=== PATIENT | female | born 1980 | race Caucasian/White ===

== ENCOUNTER 2016-10-18 10:38 | Emergency (ER) | payer OTHER ==
[~2016-10-18] VITALS: Ht 177.8 cm; Wt 79.5 kg
[2016-10-18 10:40] VITALS: BP 141/88; PULSE 77; RESP 16; O2SAT 100
--- NOTE | 2016-10-18 11:10 | ED.REPORT ---
HPI-Facial Injury Date of Service Oct 18, 2016 ED Provider: King Castro MD Patient is a 36 year old female who presents to the ED complaining of a headache behind the left eye onset 4 days ago. Associated symptoms include pain that radiates into her jaw and left shoulder, lip numbness, left arm and leg weakness, left leg swelling since resolved, lightheadedness when she bends over and blurry vision when she bends over. The patient also complains of constant abdominal pain onset 6 months ago. She denies vision loss, difficulty walking, difficulty swallowing, difficulty speaking, chest pain, shortness of breath, diarrhea, constipation, hematochezia, dysuria, fever or back pain. The patient reports that her left eye started hurting when she moved her eyes and then went away for a day but then returned the next morning. She states that she has never experienced this type of headache before. Patient has an appointment scheduled with her primary care physician regarding her abdominal pain. Nursing Notes Stated Complaint: LEFT SIDE FACIAL PAIN/NUMBNESS Chief Complaint: General Complaint Nursing Notes Reviewed: Yes Allergies: Coded Allergies: No Known Allergies (Verified , 10/18/16) General Time Seen by Provider: 11:24 Chief Complaint Other (eye pain) Hx Obtained From: Patient Arrived By: Walk-in Onset Occurred: 4 days ago Quality: Painful Severity: Current: Moderate Similar Sx Previous: No Past Medical History Past Medical History none reported Past Surgical History Reports: Cholecystectomy Smoking History Unknown if Ever Smoker Social History Other Social History: Good social support Ambulatory Status Independent Review of Systems Constitutional: Denies: Chills, Fever Eyes: Reports: Blurred bilateral, Eye pain left, Denies: Visual loss bilateral Musculoskeletal: Reports: Extremity pain, Extremity swelling, Denies: Back pain Skin: Denies Itching, Denies Rash Neurologic: Reports: Headache, Numbness, Weakness, Denies: Slurred speech, Unable to speak Complete sys rev & neg: except as marked. Respiratory: Denies: Non-productive cough, Shortness of breath Cardiovascular: Denies: Chest pain GI: Reports: Abdominal pain, Denies: Constipation, Diarrhea, Hematochezia Female: Denies: Dysuria Physical Exam Initial Vital Signs Vital Signs (First) Date Time Temp Pulse Resp B/P Pulse Ox O2 Delivery O2 Flow Rate FiO2 10/18/16 10:40 36.8 77 16 141/88 100 Room Air Initial VS: Reviewed Head / Eyes: Atraumatic, Normocephalic, PERRL, EOMI ENT: Atraumatic, Airway patent, Mucous membranes moist, Tympanic membs NL Neck: Atraumatic, Supple Neurologic: Oriented X3, Speech NL, CN II - XII intact normal heel to caldwell normal nose to finger General/Constitutional: Awake, Alert, No acute distress Respiratory / Chest: Atraumatic, Breath sounds NL, Breath sounds = bilat, No respiratory distress Cardiovascular: Heart rate NL, Regular rhythm, Heart sounds NL, No murmurs Skin: Atraumatic, Color NL, No rash, Warm, Dry Abdomen: Atraumatic, Soft Tenderness/Guarding/Rebound: Positive: Tender diffuse Lower Extremity / Pelvis / MS: Atraumatic, No edema Psychiatric: Affect NL, Mood NL Interpretation & Diagnostics Interpretation & Diagnostics: BRAIN MRI: IMPRESSION: Unremarkable unenhanced examination as above. No evidence of acute ischemia or white matter signal abnormality. Dictated by: Sav Roberts M.D. on 10/18/2016 at 12:44 Approved by: Sav Roberts M.D. on 10/18/2016 at 12:50 Lab Results Interpretation Result Diagram: 10/18/16 1128 10/18/16 1128 Test 10/18/16 11:28 10/18/16 15:52 White Blood Count 6.5th/mm3 (3.8-10.1) Red Blood Count 4.70mil/mm3 (3.90-5.20) Hemoglobin 13.7g/dL (12.0-15.6) Hematocrit 40.0% (35.0-46.0) Mean Corpuscular Volume 85.1fL (81-100) Mean Corpuscular Hemoglobin 29.1pg (27.0-35.0) Mean Corpuscular Hemoglobin Concent 34.3% (32.0-37.0) Red Cell Distribution Width 12.4% (12.3-15.4) Platelet Count 248bil/L (150-400) Neutrophils (%) (Auto) 66.0% (40-74) Lymphocytes (%) (Auto) 24.9% (14-46) Monocytes (%) (Auto) 8.0% (4-12) Eosinophils (%) (Auto) 0.6% (0-5) Basophils (%) (Auto) 0.3% (0-3) Sodium Level 137mEq/L (134-144) Potassium Level 3.9mEq/L (3.5-5.2) Chloride Level 100mEq/L (97-108) Carbon Dioxide Level 22mmol/L (18-29) Blood Urea Nitrogen 10mg/dL (6-20) Creatinine 0.63mg/dL (0.57-1.00) Estimat Glomerular Filtration Rate 153mL/min (>59) Glucose Level 97mg/dL (60-99) Calcium Level 9.3mg/dL (8.5-10.1) Total Bilirubin 0.3mg/dL (0.0-1.2) Aspartate Amino Transf (AST/SGOT) 23U/L (0-50) Alanine Aminotransferase (ALT/SGPT) 30U/L (0-32) Alkaline Phosphatase 76U/L (25-150) Total Protein 7.2g/dL (6.4-8.4) Albumin 4.2g/dL (3.4-5.0) Lipase 21U/L (13-60) Hold Urine Received (Received) CT Head Interpretation IMPRESSION: No acute intracranial findings. Dictated by: Callie Ham M.D. on 10/18/2016 at 12:12 Approved by: Callie Ham M.D. on 10/18/2016 at 12:14 Interpretation / Wet Read by: Interpret - Radiologist Re-Eval/Medical Decision Med Decision/Clinical Course Med Decision/Clinical Course: 36-year-old female presenting with left facial numbness and unilateral left-sided headache [address] scan and MRI were performed both of which showed no acute pathology. Labs are unremarkable. She did complain of some chronic abdominal pain labs were normal. Her abdomen was mildly tender which resolved while she was here with GI cocktail. Did not suspect CVA given normal imaging as above. Possible atypical migraine. She will follow-up with her primary doctor. Return precautions given. Re-Evaluation/Progress : Time of Eval: 14:07 Re-Evaluation/Progress Note: Discussed results and plan for discharge. Patient understands and agrees to plan. All questions were addressed Counseled Regarding: Diagnosis, Lab results, Need for follow-up, When/why to return to ED Discharge & Departure Impression: Primary Impression: Facial numbness Additional Impressions: Headache Headache type: unspecified Headache chronicity pattern: acute headache Intractability: intractable Qualified Code: R51 - Headache Abdominal pain Abdominal location: generalized Qualified Code: R10.84 - Generalized abdominal pain Disposition: Home Discharge Condition All VS Reviewed: Yes Condition: Stable Additional Instructions: Your head CT and MRI was normal and reassuring. An immediately dangerous cause for symptoms were not identified today. You can try taking Tylenol for your pain. Follow up with the referred neurologist and your primary care physician next week. Return to the emergency department if you develop any new or concerning symptoms Referrals: Clara Zapata MD (PCP) Ashley Attestation Portions of this note were transcribed by Patrizia Charles. I, Dr. Castro personally performed the history, physical exam and medical decision-making; I reviewed and confirmed the accuracy of the information in the transcribed note. Signed by: Ashley Jaimes, 10/18/16. copies to: Clara Zapata MD, Ben M MD Oct 18, 2016 11:10 Sherrie Charles Oct 18, 2016 11:32
[2016-10-18] MEDS ORDERED: 0.9% Sodium Chloride 1,000 ML IV ONE (11:34)
[2016-10-18] MEDS ORDERED: LidocaineVisc 2%:Antacid 1:1 10 mL Syringe PO ONE (11:35)
[2016-10-18] MEDS ORDERED: MetoCLOpramide 5 mg/mL 2 mL Inj IVPUSH ONE (11:35)
--- NOTE | 2016-10-18 12:16 | DRSVH ---
PROCEDURE: CT BRAIN WITHOUT CONTRAST ([id number]) INDICATIONS: facial numbness TECHNIQUE: Noncontrast 4.5 mm thick angled axial sections acquired from the foramen magnum to the vertex, with c oronal reformats. COMPARISON: None. FINDINGS: Image quality: Excellent. CSF spaces: Basal cisterns are patent. No extra-axial fluid collections. Ventricles are normal in size and shape. Brain: No midline shift. No intracranial masses or hemorrhage. Stacy-white matter interface is norm al. Skull and face: Calvarium and visualized facial bones are intact, without suspicious lesions. Sinuses: Visualized sinuses and mastoids are clear. IMPRESSION: No acute intracranial findings. Dictated by: Callie Ham M.D. on 10/18/2016 at 12:12 Approved by: Callie Ham M.D. on 10/18/2016 at 12:14
[2016-10-18 12:48] LABS: BASOPHILS % (AUTO) 0.3 % (0-3); EOSINOPHILS % (AUTO) 0.6 % (0-5); Mean Corpuscular Hemoglobin 29.1 pg (27.0-35.0); Mean Corpuscular Volume 85.1 fL (81-100); Platelet Count 248 bil/L (150-400)
[2016-10-18 13:07] VITALS: BP 109/67; PULSE 75; RESP 20; O2SAT 100
--- NOTE | 2016-10-18 13:52 | DRSVH ---
PROCEDURE: MRI BRAIN WITHOUT CONTRAST ([id number]) INDICATIONS: L facial/lip numbness, headache TECHNIQUE: Noncontrast axial T1 spin echo, axial T2 fast spin echo, sagittal and axial FLAIR, coronal T2 fast sp in echo, axial gradient echo, axial diffusion and ADC through the brain. COMPARISON: None. FINDINGS: Image quality: Excellent. CSF Spaces: Basal cisterns are patent. No extra-axial fluid collections. Ventricles are normal in size and shape. Brain: No intracranial masses or hemorrhage. Stacy/white matter interface is normal. Brainstem appe ars normal. Diffusion-weighted images demonstrate no acute ischemic insult. No chronic ischemic ins ults. Normal intravascular flow voids are present. Skull and face: Calvarium has normal marrow signal. Orbits appear normal. Sinuses: Sinuses and mastoids are clear. IMPRESSION: Unremarkable unenhanced examination as above. No evidence of acute ischemia or white matter signal abnormality. Dictated by: Sav Roberts M.D. on 10/18/2016 at 12:44 Approved by: Sav Roberts M.D. on 10/18/2016 at 12:50
[2016-10-18 14:52] VITALS: BP 122/73; PULSE 70; RESP 16; O2SAT 100
== END 2016-10-18 14:54 | disposition home or self-care (01) ==
LOC: SED 10:38
DX: R20.0 Anesthesia of skin (principal); R51 Headache; R10.84 Generalized abdominal pain
CPT/HCPCS: 36415; 70450; 70551; 80053; 83690; 85025; 96361; 96374; 96375; 99285; J1885; J2765; J7030